=== PATIENT | male | born 1965 | race Caucasian/White ===

== ENCOUNTER 2017-03-17 17:52 | Observation (INO) | payer OTHER ==
[~2017-03-17] VITALS: Ht 200.7 cm; Wt 127.0 kg
[2017-03-17] MEDS ORDERED: CARVEDILOL12.5 MG PO (18:31)
[2017-03-17] MEDS ORDERED: AMLODIPINE-BEN1 EAC5 PO (18:32)
[2017-03-17] MEDS ORDERED: OMEGA-3 ACID ETH1 GM PO (18:32)
[2017-03-17] MEDS ORDERED: ERGOCALCIF50000 UNIT PO ×2 (18:33→21:31)
[2017-03-17] MEDS ORDERED: SERTRALINE HCL100 MG PO (18:33)
[2017-03-17] MEDS ORDERED: LAMOTRIGINE150 MG PO (18:33)
[2017-03-17] MEDS ORDERED: ESZOPICLONE3 MG PO (18:34)
[2017-03-17] MEDS ORDERED: SIMVASTATIN10 MG PO (18:35)
[2017-03-17] MEDS ORDERED: VIAGRA100 MG PO (18:36)
[2017-03-17 18:44] LABS: HEMATOCRIT 38.2 % (38.0-50.0); MCH 28.7 PG (29.0-34.0); MCV 84.3 FL (86-99); MEAN PLAT.VOLUME 8.4 uM^3 (9.0-12.4); PLATELET COUNT 241 K/uL (156-360); RBC DIS.WIDTH-CV 12.3 % (11.8-14.6); RBC DIS.WIDTH-SD 37.2 % (39-53); RED BLOOD COUNT 4.53 M/uL (4.00-5.50); WHITE BLOOD COUNT 10.7 K/uL (4.1-10.2)
[2017-03-17 18:55] LABS: CHLORIDE 105 mEq/L (99-109); POTASSIUM 3.6 mEq/L (3.7-5.4); SODIUM 142 mEq/L (136-147)
[2017-03-17 18:56] LABS: GLUCOSE 88 mg/dL (70-99)
[2017-03-17 18:58] LABS: ANION GAP 12 MEQ/L (2-14)
[2017-03-17 19:00] LABS: GFR ESTIMATE (CALCULATED) > 59 mL/min/
[2017-03-17 19:01] LABS: UREA NITROGEN (BUN) 13 mg/dL (9-23)
[2017-03-17 19:05] LABS: TROP-I INTERPRETATION NEGATIVE; TROPONIN-I < 0.01 ng/mL (0.0-0.30)
[2017-03-17 20:47] LABS: D-DIMER ELISA 0.25 mg/L FEU (< 0.57)
[2017-03-17] MEDS ORDERED: ONE-A-DAY ESSE1 EAC1 PO (21:32)
[2017-03-17] MEDS ORDERED: IRON325 M1 PO (21:32)
[2017-03-17 22:50] VITALS: BP 136/94
[2017-03-18 01:12] LABS: TROP-I INTERPRETATION NEGATIVE; TROPONIN-I < 0.01 ng/mL (0.0-0.30)
[2017-03-18 02:34] LABS: HDL CHOLESTEROL 29 MG/DL (Desirable>=40); LDL CHOLESTEROL 61 mg/dL (Desirable<100); NON-HDL CHOLESTEROL 112 mg/dL (Desirable<160); TOTAL CHOLESTEROL 141 mg/dL (Desirable<200); TRIGLYCERIDES 255 MG/DL (Normal: <150)
[2017-03-18 04:03] VITALS: BP 127/83
[2017-03-18 06:50] LABS: Estimated Average Glucose 131 mg/dL (70-123); HEMOGLOBIN A1c (GLYCOHEMOGLOB) 6.2 % HGB (Below 5.7)
[2017-03-18 07:13] VITALS: BP 140/95
[2017-03-18 08:45] LABS: TROP-I INTERPRETATION NEGATIVE; TROPONIN-I 0.02 ng/mL (0.0-0.30)
[2017-03-18] MEDS ORDERED: ASPIR 8181 M1 PO (10:36)
[2017-03-18 10:56] LABS: CHLORIDE 105 mEq/L (99-109); POTASSIUM 4.1 mEq/L (3.7-5.4); SODIUM 140 mEq/L (136-147)
[2017-03-18 10:58] LABS: GLUCOSE 101 mg/dL (70-99)
[2017-03-18 10:59] LABS: ANION GAP 8 MEQ/L (2-14)
[2017-03-18 11:00] LABS: TOTAL BILIRUBIN 0.6 mg/dL (0.0-1.0)
[2017-03-18 11:01] LABS: ALKALINE PHOSPHATASE 73 IU/L (3-129)
[2017-03-18 11:02] LABS: GFR ESTIMATE (CALCULATED) > 59 mL/min/
[2017-03-18 11:03] LABS: UREA NITROGEN (BUN) 13 mg/dL (9-23)
== END 2017-03-18 12:14 | disposition home or self-care (01) ==
LOC: EME 17:52 → EDOF 20:38 → 5WEST 20:38 → EDOF 20:38 → 5WEST 22:19
PROVIDERS: Physician Assistant; Physician Assistant Medical
DX: R07.89 Other chest pain (principal); R06.02 Shortness of breath; I10 Essential (primary) hypertension; R94.31 Abnormal electrocardiogram [ECG] [EKG]; E87.6 Hypokalemia; E11.9 Type 2 diabetes mellitus without complications; G47.33 Obstructive sleep apnea (adult) (pediatric); E66.9 Obesity, unspecified; Z68.31 Body mass index [BMI] 31.0-31.9, adult; F31.9 Bipolar disorder, unspecified; E78.5 Hyperlipidemia, unspecified; F41.9 Anxiety disorder, unspecified; F42.8 Other obsessive-compulsive disorder
CPT/HCPCS: 71020; 80048; 80053; 80061; 83036; 84484; 85027; 85379; 93005; 99281; 99285; G0378; J1650; J3480

== ENCOUNTER 2017-05-18 16:03 | Emergency (ER) | payer OTHER ==
[~2017-05-18] VITALS: Ht 188 cm; Wt 126.7 kg
[~2017-05-18 16:03] MED LIST: AMLODIPINE-BEN1 EAC5 PO; ASPIR 8181 M1 PO; CARVEDILOL12.5 MG PO; ERGOCALCIF50000 UNIT PO; ESZOPICLONE3 MG PO; IRON325 M1 PO; LAMOTRIGINE150 MG PO; OMEGA-3 ACID ETH1 GM PO; ONE-A-DAY ESSE1 EAC1 PO; SERTRALINE HCL100 MG PO; SIMVASTATIN10 MG PO; VIAGRA100 MG PO
[2017-05-18 16:49] LABS: ADD MIUA? YES; BILIRUBIN NEGATIVE; BLOOD MODERATE; COLOR YELLOW ((YELLOW)); GLUCOSE (STRIP) NEGATIVE; KETONES NEGATIVE; LEUKOCYTES NEGATIVE; NITRITE NEGATIVE; PROTEIN (STRIP) >=500; SPECIFIC GRAVITY 1.011 (1.000-1.030); UROBILINOGEN 0.2 MG/DL (0.2-1.0)
[2017-05-18 17:04] LABS: HEMATOCRIT 38.7 % (38.0-50.0); MCH 29.3 PG (29.0-34.0); MCHC 34.4 G/DL (30.0-36.0); MCV 85.2 FL (86-99); MEAN PLAT.VOLUME 8.7 uM^3 (9.0-12.4); PLATELET COUNT 262 K/uL (156-360); RBC DIS.WIDTH-CV 12.5 % (11.8-14.6); RBC DIS.WIDTH-SD 38.5 % (39-53); RED BLOOD COUNT 4.54 M/uL (4.00-5.50); WHITE BLOOD COUNT 12.5 K/uL (4.1-10.2)
[2017-05-18 17:11] LABS: BACTERIA RARE /HPF; EPITHELIAL CELLS NONE SEEN /HPF; MUCUS 4+ /LPF; RED BLOOD CELLS TNTC /HPF (0-5); UCUL ADDED? YES
[2017-05-18 17:12] LABS: CHLORIDE 104 mEq/L (99-109); POTASSIUM 4.1 mEq/L (3.7-5.4)
[2017-05-18 17:13] LABS: SODIUM 141 mEq/L (136-147)
[2017-05-18 17:14] LABS: GLUCOSE 126 mg/dL (70-99)
[2017-05-18 17:16] LABS: ANION GAP 10 MEQ/L (2-14)
[2017-05-18 17:18] LABS: GFR ESTIMATE (CALCULATED) > 59 mL/min/
[2017-05-18 17:19] LABS: UREA NITROGEN (BUN) 13 mg/dL (9-23)
[2017-05-18] MEDS ORDERED: PERCOCET 5/31 TABLET PO (18:01)
[2017-05-18] MEDS ORDERED: FLOMAX0.4 MG PO (18:01)
[2017-05-18] MEDS ORDERED: ZOFRAN ODT4 MG PO (18:01)
[2017-05-18 18:30] VITALS: BP 159/97
== END 2017-05-18 18:34 | disposition home or self-care (01) ==
LOC: EME 16:03
DX: N13.2 Hydronephrosis with renal and ureteral calculous obstruction (principal); R31.9 Hematuria, unspecified; I10 Essential (primary) hypertension; Z87.442 Personal history of urinary calculi
CPT/HCPCS: 74176; 80048; 81003; 85027; 87086; 99281; 99284

== ENCOUNTER 2018-06-10 18:18 | Emergency (ER) | payer OTHER ==
[~2018-06-10] VITALS: Ht 188 cm; Wt 126.5 kg
[~2018-06-10 18:18] MED LIST changes: +FLOMAX0.4 MG PO; +PERCOCET 5/31 TABLET PO; +ZOFRAN ODT4 MG PO
[2018-06-10 19:24] LABS: HEMOGLOBIN 12.7 G/DL (12.5-16.6); MCH 29.7 PG (29.0-34.0); MCHC 35.3 G/DL (30.0-36.0); MCV 84.1 FL (86-99); PLATELET COUNT 228 K/uL (156-360); RBC DIS.WIDTH-CV 12.3 % (11.8-14.6); RBC DIS.WIDTH-SD 37.2 % (39-53); RED BLOOD COUNT 4.28 M/uL (4.00-5.50); WHITE BLOOD COUNT 8.9 K/uL (4.1-10.2)
[2018-06-10 19:35] LABS: CHLORIDE 104 mEq/L (99-109); D-DIMER ELISA < 150.00 ng/mLDDU (<230); POTASSIUM 3.1 mEq/L (3.7-5.4); SODIUM 140 mEq/L (136-147)
[2018-06-10 19:37] LABS: GLUCOSE 125 mg/dL (70-99)
[2018-06-10 19:41] LABS: CREATININE 1.3 mg/dL (0.6-1.3); GFR ESTIMATE (CALCULATED) > 59 mL/min/ (58.99-99999)
[2018-06-10 19:42] LABS: UREA NITROGEN (BUN) 14 mg/dL (9-23)
[2018-06-10 19:49] LABS: TROP-I INTERPRETATION NEGATIVE; TROPONIN-I < 0.01 ng/mL (0.0-0.30)
[2018-06-10 20:41] LABS: THYROTROPIN (TSH) 1.9 MIU/L (0.4-5.5)
[2018-06-10 21:49] LABS: TROP-I INTERPRETATION NEGATIVE; TROPONIN-I < 0.01 ng/mL (0.0-0.30)
[2018-06-10 22:29] VITALS: BP 174/93
== END 2018-06-10 22:35 | disposition home or self-care (01) ==
LOC: EME 18:18
PROVIDERS: Nurse Practitioner Family
DX: R00.2 Palpitations (principal); I10 Essential (primary) hypertension; R06.02 Shortness of breath; R94.31 Abnormal electrocardiogram [ECG] [EKG]; R73.03 Prediabetes; F32.9 Major depressive disorder, single episode, unspecified; F41.9 Anxiety disorder, unspecified; Z87.442 Personal history of urinary calculi; Z98.890 Other specified postprocedural states; J30.81 Allergic rhinitis due to animal (cat) (dog) hair and dander; J30.1 Allergic rhinitis due to pollen
CPT/HCPCS: 71046; 80048; 84443; 84484; 85027; 85379; 93005; 99281; 99284